=== PATIENT | female | born 1965 | race Caucasian/White ===

== ENCOUNTER 2019-08-20 15:56 | Inpatient (IN) | payer BC ==
[~2019-08-20] VITALS: Ht 172.7 cm; Wt 88.5 kg
[2019-08-20 15:58] VITALS: Ht 172.7 cm; Wt 88.5 kg
[2019-08-20 17:02] LABS: BASOPHIL % 0.7 % (0-2); PLATELET COUNT 209 x10^3mcL (130-400)
[2019-08-20 17:03] LABS: RED CELL DISTRIBUTION WIDTH 14.7 % (11.5-14.5)
[2019-08-20 17:32] LABS: CALCIUM 8.6 mg/dL (8.5-10.1); CARBON DIOXIDE 29.4 mmol/L (21-32); CHLORIDE SERUM 108 mmol/L (98-107); CREATININE SERUM 0.8 mg/dL (0.6-1.0); GFR1 > 60 mL/min; GLUCOSE SERUM 109 mg/dL (74-106); POTASSIUM SERUM 3.6 mmol/L (3.5-5.1); SODIUM SERUM 144 mmol/L (136-145)
[2019-08-20 17:36] LABS: ALBUMIN 3.5 g/dL (3.4-5.0); ALKALINE PHOSPHATASE 57 U/L (46-116); ALT/SGPT 24 U/L (14-59); AST/SGOT 11 U/L (15-37); BILIRUBIN TOTAL 0.4 mg/dL (0.20-1.00); CHOLESTEROL 129 mg/dL (<200); HDL CHOLESTEROL 45 mg/dL (40-60); LIPASE 136 IU/L (73-393); MAGNESIUM 2.5 mg/dL (1.8-2.4); T4(THYROXINE) 7.3 ug/dL (4.7-13.3); TOTAL PROTEIN, SERUM 6.5 g/dL (6.4-8.2)
[2019-08-20 18:58] LABS: microscopic required? YES; urine erythrocyte 2+ (NEGATIVE)
[2019-08-20 19:13] LABS: AMPHETAMINE QUAL UR NONE DETECTED (See below)
[2019-08-20 20:23] VITALS: BP 97/59
[2019-08-21 06:36] LABS: BASOPHIL % 0.8 % (0-2); PLATELET COUNT 207 x10^3mcL (130-400); RED CELL DISTRIBUTION WIDTH 14.3 % (11.5-14.5)
[2019-08-21 06:48] VITALS: BP 94/50
[2019-08-21 07:00] LABS: CALCIUM 8.3 mg/dL (8.5-10.1); CHLORIDE SERUM 110 mmol/L (98-107); CREATININE SERUM 0.7 mg/dL (0.6-1.0); GFR1 > 60 mL/min; GLUCOSE SERUM 90 mg/dL (74-106); MAGNESIUM 2.3 mg/dL (1.8-2.4); PHOSPHOROUS 3.6 mg/dL (2.5-4.9); POTASSIUM SERUM 4.2 mmol/L (3.5-5.1); SODIUM SERUM 142 mmol/L (136-145)
[2019-08-21 09:27] VITALS: BP 105/69
[2019-08-21 12:06] VITALS: BP 91/54
[2019-08-21 18:16] VITALS: BP 102/49
[2019-08-21 21:27] VITALS: BP 91/42
[2019-08-21 22:00] VITALS: BP 102/67
[2019-08-22 05:36] VITALS: BP 121/49
[2019-08-22 07:07] LABS: BASOPHIL % 0.9 % (0-2); PLATELET COUNT 192 x10^3mcL (130-400)
[2019-08-22 07:22] LABS: CALCIUM 7.9 mg/dL (8.5-10.1); CARBON DIOXIDE 22.8 mmol/L (21-32); CHLORIDE SERUM 111 mmol/L (98-107); CREATININE SERUM 0.6 mg/dL (0.6-1.0); GFR1 > 60 mL/min; PHOSPHOROUS 3.4 mg/dL (2.5-4.9); POTASSIUM SERUM 3.9 mmol/L (3.5-5.1); SODIUM SERUM 142 mmol/L (136-145)
[2019-08-22 07:23] LABS: RED CELL DISTRIBUTION WIDTH 14.7 % (11.5-14.5)
[2019-08-22 07:36] LABS: GLUCOSE SERUM 91 mg/dL (74-106); MAGNESIUM 2.1 mg/dL (1.8-2.4)
[2019-08-22 08:33] VITALS: BP 116/53
[2019-08-22 12:20] LABS: BASOPHIL % 0.8 % (0-2); PLATELET COUNT 216 x10^3mcL (130-400)
[2019-08-22 12:29] LABS: RED CELL DISTRIBUTION WIDTH 14.9 % (11.5-14.5)
[2019-08-22 12:45] VITALS: BP 104/67
[2019-08-22 16:40] VITALS: BP 90/62
== END 2019-08-22 18:54 | disposition home or self-care (01) | DRG 761 ==
LOC: ED 15:56 → DU 18:40 → MU 08-22 17:10
PROVIDERS: Emergency Medicine; Obstetrics & Gynecology; ADMIT Family Medicine
DX: D25.9 Leiomyoma of uterus, unspecified (principal); G90.8 Other disorders of autonomic nervous system; E83.41 Hypermagnesemia; D50.0 Iron deficiency anemia secondary to blood loss (chronic); N93.9 Abnormal uterine and vaginal bleeding, unspecified; Z87.440 Personal history of urinary (tract) infections; Z86.73 Personal history of transient ischemic attack (TIA), and cerebral infarction without residual deficits
CPT/HCPCS: 83880; 97116-GP; G0378; G0480; J7030; Q0092